=== PATIENT | male | born 1985 | race Caucasian/White ===

== ENCOUNTER 2018-08-15 21:40 | Emergency (ER) | payer SELFPAY ==
[~2018-08-15] VITALS: Wt 79.9 kg
[2018-08-15 21:42] VITALS: BP 134/71; PULSE 99; RESP 18
[2018-08-16] MEDS ORDERED: SOD CHLORIDE 0.9% 1,000 ML IV STA (03:13)
--- NOTE | 2018-08-16 03:57 | ERD ---
ER Documentation Chief Complaint Chief Complaint INSOMNIA HPI This 33-year-old male presents to the emergency room for evaluation of insomnia. He states that he normally drinks alcohol to go to sleep at night however he is not been able to sleep despite drinking alcohol. The patient came to the ER today for evaluation of his symptoms. The patient denies any homicidal or suicidal ideation at this time. He does state that he did drink one sip of rubbing alcohol to try to help him go to sleep however he states this occurred greater than 8 hours ago. ROS All systems reviewed and are negative except as per history of present illness. Allergies Allergies: Coded Allergies: No Known Allergy (Unverified , 08/16/18) PMhx/Soc History of Surgery: Yes (leg & foot sx) Anesthesia Reaction: No Hx Neurological Disorder: No Hx Respiratory Disorders: No Hx Cardiac Disorders: No Hx Psychiatric Problems: Yes (ETOH and drug abuse) Hx Miscellaneous Medical Probl: No Hx Alcohol Use: Yes (daily,last used 08/15/2018-4 beers & 1 bottle rubbing alcohol) Hx Substance Use: Yes (marijuana, last used 08/15/2018) Hx Tobacco Use: No Smoking Status: Never smoker Physical Exam Vitals Vital Signs Date Temp Pulse Resp B/P (MAP) Pulse Ox O2 O2 Flow FiO2 Time Delivery Rate 08/15/18 98.1 99 18 134/71 100 21:42 (92) Physical Exam INITIAL VITAL SIGNS: Reviewed by me GENERAL: The patient has a disheveled appearance HEENT: Pupils equal, round, and reactive to light. EOMI. There is no scleral icterus. NECK: C-spine is soft and supple, there is no meningismus. There is no cervical lymphadenopathy. LUNGS: Clear to auscultation bilaterally. There are no rales, wheezes or rhonchi. HEART: Regular rate and rhythm, no murmurs, clicks, rubs or gallops. ABDOMEN: Soft, non-tender, non-distended. There are bowel sounds in all four quadrants. No rebound or guarding. EXTREMITIES: There is no peripheral cyanosis or edema. No focal swelling or erythema. NEUROLOGICAL: The patient moves all four extremities with 5/5 strength. Cranial nerves II - XII are intact. Normal gait. Alert and oriented SKIN: There is no apparent rash or petechiae. HEME/LYMPHATIC: There is no evidence of excessive bruising or lymphedema. PSYCHIATRIC: The patient does not appear anxious or depressed. Result Diagram: 08/16/18 0301 08/16/18 0301 Results 24 hrs Laboratory Tests Test 08/16/18 03:01 White Blood Count 8.8 10^3/ul Red Blood Count 3.16 10^6/ul Hemoglobin 9.2 g/dl Hematocrit 29.0 % Mean Corpuscular Volume 91.8 fl Mean Corpuscular Hemoglobin 29.1 pg Mean Corpuscular Hemoglobin Concent 31.7 g/dl Red Cell Distribution Width 19.2 % Platelet Count 85 10^3/UL Mean Platelet Volume 10.2 fl Immature Granulocytes % 0.200 % Neutrophils % 76.0 % Lymphocytes % 11.9 % Monocytes % 11.6 % Eosinophils % 0.2 % Basophils % 0.1 % Nucleated Red Blood Cells % 0.0 /100WBC Immature Granulocytes # 0.020 10^3/ul Neutrophils # 6.7 10^3/ul Lymphocytes # 1.0 10^3/ul Monocytes # 1.0 10^3/ul Eosinophils # 0.0 10^3/ul Basophils # 0.0 10^3/ul Nucleated Red Blood Cells # 0.0 10^3/ul Sodium Level 139 mmol/L Potassium Level 3.3 mmol/L Chloride Level 107 mmol/L Carbon Dioxide Level 17 mmol/L Anion Gap 15 Blood Urea Nitrogen 12 mg/dl Creatinine 0.57 mg/dl Est Glomerular Filtrat Rate mL/min > 60 mL/min Glucose Level 96 mg/dl Calcium Level 9.5 mg/dl Total Bilirubin 0.2 mg/dl Direct Bilirubin 0.00 mg/dl Indirect Bilirubin 0.2 mg/dl Aspartate Amino Transf (AST/SGOT) 155 IU/L Alanine Aminotransferase (ALT/SGPT) 131 IU/L Alkaline Phosphatase 137 IU/L Total Protein 8.1 g/dl Albumin 4.3 g/dl Globulin 3.80 g/dl Albumin/Globulin Ratio 1.13 Salicylates Level < 1.0 mg/dl Acetaminophen Level < 10.0 ug/ml Ethyl Alcohol Level 16.0 mg/dl Current Medications Medications Dose Sig/Sol Start Time Status Last (Trade) Ordered Route PRN Stop Time Admin Dose Reason Admin Sodium 1,000 ml @ Q1H STAT 08/16/18 08/16/18 Chloride 1,000 mls/hr IV 03:13 03:20 08/16/18 04:12 Ibuprofen 800 mg ONCE ONCE 08/16/18 (Motrin) PO 04:00 08/16/18 04:01 Procedures/MDM This 33-year-old male presents to the ER for evaluation of alcohol ingestion, and insomnia. On my exam the patient is alert and oriented to person place and time. He denies homicidal ideation and denies suicidal ideation. Lab work was obtained and lab work does demonstrate a alcohol level of 16. The patient had lab work drawn and does have transaminitis which is likely secondary to chronic alcohol use. He does not have an elevation in his serum osmolality which would be indicative of isopropyl alcohol poisoning. The patient was given IV fluids and was given Motrin for pain. He will be discharged at this time with strict return precautions. Patient is refusing resources at this time Departure Diagnosis: Primary Impression: Insomnia Additional Impressions: Alcohol abuse Transaminitis Condition: Stable CAESAR PUGA DO Aug 16, 2018 03:57
[2018-08-16] MEDS ORDERED: IBUPROFEN 800 MG TAB PO ONE (04:00)
== END 2018-08-16 05:23 | disposition home or self-care (01) ==
LOC: E/R 21:40
DX: G47.00 Insomnia, unspecified (principal); R40.2142 Coma scale, eyes open, spontaneous, at arrival to emergency department; R40.2362 Coma scale, best motor response, obeys commands, at arrival to emergency department; R40.2252 Coma scale, best verbal response, oriented, at arrival to emergency department; F10.10 Alcohol abuse, uncomplicated; R74.0 Nonspecific elevation of levels of transaminase and lactic acid dehydrogenase [LDH]
CPT/HCPCS: 36415; 80053; 80307; 85025; 99284; J7030